=== PATIENT | female | born 1955 | race Caucasian/White ===

== ENCOUNTER 2024-02-26 09:30 | Outpatient (CLI) | payer MEDICARE, BC, SELFPAY | END 2024-02-26 09:31 | disposition home or self-care (01) | LOC: NFLDREF 02-29 12:29 | PROVIDERS: Visit Provider Physician Assistant | DX: N39.0 Urinary tract infection, site not specified (principal); B96.89 Other specified bacterial agents as the cause of diseases classified elsewhere | CPT/HCPCS: 87086; 87186 ==